=== PATIENT | male | born 1980 | race Caucasian/White ===

== ENCOUNTER 2023-12-05 00:59 | Emergency (ER) | payer BC ==
[~2023-12-05] VITALS: Ht 185.4 cm; Wt 88.5 kg
[2023-12-05 01:26] VITALS: BP 111/63; TEMP 98; O2SAT 98
[2023-12-05] MEDS ORDERED: HYDROCODONE/APAP 5/325MG TABLET ONE (01:51)
[2023-12-05] MEDS: HYDROCODONE/APAP 5/325MG TABLET PO ONE (01:53)
[2023-12-05] MEDS ORDERED: LIDOCAINE HCL/MPF 1% 30 ML VIAL IJ ONE (02:09)
== END 2023-12-05 02:47 | disposition home or self-care (01) ==
LOC: ER 01:05
DX: S61.217A Laceration without foreign body of left little finger without damage to nail, initial encounter (principal); Z60.2 Problems related to living alone; X50.9XXA Other and unspecified overexertion or strenuous movements or postures, initial encounter; Y93.89 Activity, other specified; Y92.89 Other specified places as the place of occurrence of the external cause; Y99.8 Other external cause status
CPT/HCPCS: 12001; 73140; 99283; J3490